=== PATIENT | female | born 1995 | race African-American/Black ===

== ENCOUNTER 2017-06-16 11:55 | Emergency (ER) | payer SELFPAY ==
[2017-06-16 13:39] LABS: URINE HCG POC HCG NEGATIVE (Negative)
== END 2017-06-16 14:50 | disposition home or self-care (01) ==
LOC: ER 11:55
DX: S05.91XA Unspecified injury of right eye and orbit, initial encounter (principal); H11.31 Conjunctival hemorrhage, right eye; J45.909 Unspecified asthma, uncomplicated; F12.10 Cannabis abuse, uncomplicated; W22.8XXA Striking against or struck by other objects, initial encounter; Y93.89 Activity, other specified; Y92.89 Other specified places as the place of occurrence of the external cause; Y99.2 Volunteer activity
CPT/HCPCS: 70480; 81025; 99284-25